=== PATIENT | female | born 1965 | race Two or more races ===

== ENCOUNTER 2017-04-06 11:47 | Outpatient (CLI) | payer OTHER | END 2017-04-06 12:30 | disposition home or self-care (01) | LOC: NUCLEAR 11:47 | DX: M85.859 Other specified disorders of bone density and structure, unspecified thigh (principal) ==

== ENCOUNTER 2021-01-08 08:15 | Outpatient (CLI) | payer OTHER | END 2021-01-08 08:31 | disposition home or self-care (01) | LOC: SONOGRAMA 08:15 | DX: N83.01 Follicular cyst of right ovary (principal); N83.02 Follicular cyst of left ovary ==

== ENCOUNTER 2022-02-03 14:01 | Outpatient (CLI) | payer OTHER | END 2022-02-03 14:06 | disposition home or self-care (01) | LOC: NUCLEAR 14:01 | PROVIDERS: ATTEND Internal Medicine Nephrology | DX: M81.0 Age-related osteoporosis without current pathological fracture (principal) ==

== ENCOUNTER 2022-04-24 10:06 | Outpatient (CLI) | payer OTHER | END 2022-04-24 10:11 | disposition home or self-care (01) | LOC: SONOGRAMA 10:06 | PROVIDERS: ATTEND Pathology Anatomic Pathology & Clinical Pathology | DX: D34 Benign neoplasm of thyroid gland (principal); E04.9 Nontoxic goiter, unspecified; E04.1 Nontoxic single thyroid nodule ==

== ENCOUNTER 2023-03-10 08:28 | Outpatient (CLI) | payer OTHER | END 2023-03-10 08:38 | disposition home or self-care (01) | LOC: SONOGRAMA 08:28 | PROVIDERS: ATTEND Internal Medicine Nephrology | DX: E04.2 Nontoxic multinodular goiter (principal); E06.3 Autoimmune thyroiditis; K76.0 Fatty (change of) liver, not elsewhere classified; R16.0 Hepatomegaly, not elsewhere classified ==

== ENCOUNTER 2023-11-09 13:02 | Outpatient (CLI) | payer OTHER | END 2023-11-09 13:13 | disposition home or self-care (01) | LOC: RAD 13:02 | PROVIDERS: ATTEND Internal Medicine Nephrology | DX: I51.7 Cardiomegaly (principal) ==

== ENCOUNTER 2024-03-02 08:22 | Outpatient (CLI) | payer OTHER | END 2024-03-02 08:32 | disposition home or self-care (01) | LOC: SONOGRAMA 08:22 | PROVIDERS: ATTEND Internal Medicine Nephrology | DX: K76.0 Fatty (change of) liver, not elsewhere classified (principal); R16.0 Hepatomegaly, not elsewhere classified; E06.3 Autoimmune thyroiditis; E04.2 Nontoxic multinodular goiter ==